=== PATIENT | female | born 1975 | race Caucasian/White ===

== ENCOUNTER → 2016-04-12 | Outpatient (CLI) | payer BC ==
--- NOTE | 2016-04-12 22:13 | CONS ---
DATE OF CONSULTATION: REASON FOR CONSULTATION: Obstructive sleep apnea. This is a 41-year-old obese female patient who is presenting with loud snoring, witnessed apneas, and chronically being fatigued and sleepy. She is concerned about sleep apnea. She goes to bed around 11 p.m., wakes up at 5 a.m. in the morning. She sleeps until 7 a.m. in the morning on weekends. She is a schoolteacher. She drives 20 minutes back and forth to work in [place]. At times she feels very tired, especially when she is driving back from work. She has never been involved in a motor vehicle accident because of feeling sleepy. Unfortunately her weight is up, and she has been having worsening in her daytime sleepiness over the past year or so. Charlton score is 18 for now. No restlessness in the lower extremities. No sleepwalking or sleeptalking. No anxiety or depression. PAST MEDICAL HISTORY: Obesity, hypertension. PAST SURGICAL HISTORY: None. ALLERGIES: SEASONAL ALLERGIES. OUTPATIENT MEDICATIONS: 1. Depo-Provera shot every 12 weeks. 2. Karrie D. 3. Fluticasone nasal spray. SOCIAL HISTORY: The patient is a nonsmoker. No history of alcoholism. No history of IV drugs. FAMILY HISTORY: Noncontributory. REVIEW OF SYSTEMS: Twelve-point review of systems was done, and the positive findings were all mentioned above in the history of present illness. BP is 168/91, pulse 84, respiration 16, temperature 97.9, saturation 99% on room air. Weight is 264. Height is 5 feet 3 inches. BMI is 46.5. Neck size 16-1/4. GENERAL APPEARANCE: Calm, comfortable. HEENT: Negative for JVD. There is no goiter or neck masses. The patient has significant crowding of posterior pharynx and Mallampati class IV. LUNGS: Clear to auscultation. HEART: Sounds are regular rate and rhythm. Normal S1, S2. No S3. No S4. No murmurs. ABDOMEN: Soft, nontender. No organomegaly. EXTREMITIES: No edema. No cyanosis or clubbing. IMPRESSION: 1. Suspected obstructive sleep apnea based on snoring and chronic hypersomnia. Currently the patient is under investigation. 2. Chronic hypersomnia with an Charlton score of 18. 3. Obesity with a body mass index of 46.5. 4. Seasonal allergic rhinitis. PLAN: 1. Proceed with screening polysomnogram. 2. Encourage weight loss. 3. Optimize sleep hygiene measures. 4. Will continue to follow.
== END | disposition home or self-care (01) ==
LOC: SLEEP 13:03
PROVIDERS: ATTEND Internal Medicine Critical Care Medicine
DX: G47.33 Obstructive sleep apnea (adult) (pediatric) (principal); G47.13 Recurrent hypersomnia; E66.9 Obesity, unspecified; Z68.42 Body mass index [BMI] 45.0-49.9, adult; J30.2 Other seasonal allergic rhinitis; Z79.899 Other long term (current) drug therapy

== ENCOUNTER → 2016-10-11 | Outpatient (CLI) | payer BC ==
--- NOTE | 2016-10-12 12:15 | PN ---
DATE OF SERVICE: 10/11/2016 This is a very pleasant 41 -year-old female patient who follows with Dr. Abdi ( ) as per primary care physician. She was referred here for suspected sleep apnea. She did undergo sleep study and was fund to have an AHI of 100 with severe symptomatic obstructive sleep apnea. She had undergone a successful CPAP titration and has been maintained on CPAP at a pressure of 14 cm water with CFLEX of 3. She has a small sized simple full face mask. She is here for follow-up. She states she has been doing very well with the CPAP. She has actually utilized it 30 out of 30 days and her AHI is now down to 0.6. She utilizes it 6.7 hours on average. There are no leaks noted. She is feeling significantly better. She denies any further daytime sleepiness. Her [place] score of 18 originally is down to 4. On physical exam, her weight is 258 pounds. Blood pressure 136/92. Heart rate 80. Respirations 16. Temperature 98.0. She is 98% O2 saturation on room air. Her head is normocephalic. Sclerae anicteric. She does have crowding of the posterior pharynx. Her neck is short, supple. Trachea is midline. Her lungs are clear anteriorly and posteriorly. Her heart is regular , S1, and S2. Her abdomen is obese, soft, nontender. Bowel sounds are present. There is no significant peripheral edema. No clubbing, no cyanosis. Peripheral pulses are intact. CPAP utilization findings reveal 30 out of 30 days averaging 6.7 hours with 0 L per minute leak. Her AHI is down to 0.6. IMPRESSION: 1. Severe symptomatic obstructive sleep apnea with an initial AHI of 100, currently utilizing CPAP at 14 cm water with a follow-up AHI of 0.6. 2. Severe nocturnal oxygen desaturation recovered with CPAP therapy. 3. REM rebound associated with CPAP therapy. 4. Chronic hypersomnia with an initial [place] score of 18, now down to 4. 5. Obesity with a body index of 46.5. 6. Allergic rhinitis. PLAN: The patient was seen and evaluated by Dr. Munson. She is quite happy with the results of her CPAP. She is comfortable with the current settings and pressures. We will continue with the CPAP and small size Simplus full face mask for now. She will follow-up in one years time. She is, however, encouraged to call sooner with any further questions or concerns. She is again educated regarding the importance of good sleep hygiene and weight loss. COOPER
== END ==
LOC: SLEEP 14:42
PROVIDERS: ATTEND Internal Medicine Critical Care Medicine
DX: G47.33 Obstructive sleep apnea (adult) (pediatric) (principal); G47.10 Hypersomnia, unspecified; E66.9 Obesity, unspecified; J30.9 Allergic rhinitis, unspecified; Z68.42 Body mass index [BMI] 45.0-49.9, adult

== ENCOUNTER → 2017-11-14 | Outpatient (CLI) | payer BC ==
--- NOTE | 2017-11-14 19:29 | SFUN ---
SLEEP CENTER FOLLOW UP NOTE DATE OF SERVICE: 11/14/2017. HISTORY: A 42-year-old female patient with sleep apnea, coming in for regular annual check. She has lost approximately 3 pounds since her last evaluation. She has severe obstructive sleep apnea with an AHI of 100. She is on CPAP pressure of 14. She continues to be compliant and she continues to benefit from treatment. She is using a Simplus full- face mask, and she has absolutely no leaks around the mask and she has an excellent mask seal. Averaging around 7.6 hours of CPAP use per night. CPAP use for more than 4 hours 100%. AHI while on treatment is down to 0.3. No complaints. She is waking up alert and refreshed during the day. No palpitations, no heartburn, no shortness of breath at nighttime. REVIEW OF SYSTEMS: A 12-point review of system was done. Positive findings are mentioned above in history of present illness. PHYSICAL EXAMINATION: BP is 144/88, pulse is 70, respirations 16, temp 97.5, saturation 99% on room air. Mccall score is 2. Height is 5 feet 3 inches, weight is 235. GENERAL APPEARANCE: Calm comfortable. Head is atraumatic, normocephalic. NECK: Supple. Mallampati class IV. There is no goiter, no neck masses. LUNGS: Clear to auscultation. HEART: Sounds are regular. Normal S1, S2. No murmurs. ABDOMEN: Soft, nontender. No organomegaly. EXTREMITIES: No edema. No cyanosis or clubbing. NEUROLOGIC: Alert and oriented x3. There is no focal neurological deficits. PSYCHIATRIC: Negative for anxiety or depression. IMPRESSION: 1. Severe symptomatic obstructive sleep apnea. Apnea hypopnea index of 100. Successful use of CPAP at pressure of 14. 2. Obesity with interval weight loss. Current weight is down to 235. 3. Hypersomnia, recovered. Current Mccall score is around 2. 4. Allergic rhinitis. PLAN: 1. No need for CPAP adjustment. Keep to a pressure of 14. 2. Encourage further weight loss. 3. Renew supplies. 4. See me back in a year's time, earlier if needed. MMODL / IJN: [id number] /
== END ==
LOC: SLEEP 16:50
PROVIDERS: ATTEND Internal Medicine Critical Care Medicine
DX: G47.33 Obstructive sleep apnea (adult) (pediatric) (principal); E66.9 Obesity, unspecified; R63.4 Abnormal weight loss; J30.9 Allergic rhinitis, unspecified

== ENCOUNTER → 2019-04-05 | Outpatient (CLI) | payer BC ==
--- NOTE | 2019-04-08 09:43 | MM ---
Reason for exam: screening (asymptomatic). Baseline mammogram. History: Patient had first child at age 31. Family history of breast cancer in mother at age 60. Physical Findings: A clinical breast exam by your physician is recommended on an annual basis and results should be correlated with mammographic findings. MG 3D Screening Mammo W/Cad Bilateral CC and MLO view(s) were taken. No prior studies available for comparison. The breast tissue is heterogeneously dense. This may lower the sensitivity of mammography. There is no discrete abnormality. ASSESSMENT: Negative, BI-RAD 1 RECOMMENDATION: Routine screening mammogram of both breasts in 1 year.
== END | disposition home or self-care (01) ==
LOC: RADMAMWWP 13:14
PROVIDERS: ATTEND Family Medicine
DX: Z12.31 Encounter for screening mammogram for malignant neoplasm of breast (principal); Z12.39 Encounter for other screening for malignant neoplasm of breast
CPT/HCPCS: 77063; 77067

== ENCOUNTER → 2019-08-20 | Outpatient (CLI) | payer BC ==
--- NOTE | 2019-08-20 18:06 | PN ---
PROGRESS NOTE This patient has severe ELIAS with an AHI of 100, coming in for a followup regarding her sleep apnea treatment. She continues to be excessively successful with her treatment, and she is currently on CPAP pressure of 12. On her compliance data, she is averaging around 7.3 hours with a CPAP use of more than 4 hours being 100%. She is leaking 6 L/minute and her AHI is down to 0.4. Her [place] score is 1. She has gained around 20 pounds. However, this has not affected her compliancy and clinical response. She is still doing well. No new complaints otherwise for now. No new-onset comorbidities. 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 REVIEW OF SYSTEMS: Fourteen-point review of system was done. Finding are positive only for some 20 pounds of weight gain. Otherwise no other significant comorbidities or new-onset symptoms for now. She is driving her car. She is not having any tiredness or sleepiness during the day. She was started on a blood pressure medication for blood pressure control. PHYSICAL EXAMINATION: VITAL SIGNS: BP is 110/71, pulse 76, respirations 16, temperature 98.0, saturation 98% on room air. Weight is 256, height is 5 feet 3 inches. GENERAL APPEARANCE: Calm, comfortable. HEAD: Atraumatic, normocephalic. NECK: Supple. No JVD. No goiter or neck masses. LUNGS: Clear to auscultation. HEART: Heart sounds are regular rate and rhythm. Normal S1, S2. No S3, S4. No murmurs. ABDOMEN: Soft, nontender. No organomegaly. EXTREMITIES: No edema. No cyanosis or clubbing. IMPRESSION: 1. Severe obstructive sleep apnea with an AHI of 100, currently on CPAP pressure of 12 with excellent clinical response and compliance. 2. Hypersomnia, recovered. 3. Snoring, recovered. 4. Hypertension. 5. Morbid obesity. PLAN: 1. Weight loss. 2. Continue same mask interface. 3. Continue same pressure setting. 4. Treatment is extremely successful. See me back in a few years' time in followup. Her DME is [employer]. She has no complaints. MMODL / IJN: [id number] /
== END | disposition home or self-care (01) ==
LOC: SLEEP 15:42
PROVIDERS: ATTEND Internal Medicine Critical Care Medicine
DX: G47.33 Obstructive sleep apnea (adult) (pediatric) (principal); E66.01 Morbid (severe) obesity due to excess calories; I10 Essential (primary) hypertension; Z68.42 Body mass index [BMI] 45.0-49.9, adult; Z99.89 Dependence on other enabling machines and devices

== ENCOUNTER → 2020-12-22 | Outpatient (CLI) | payer BC ==
--- NOTE | 2020-12-22 17:24 | PN ---
PROGRESS NOTE Montserrat is coming for an annual check. She is known to have obstructive sleep apnea, severe, with an AHI of 100. The patient remains on a CPAP pressure of 12 cm of water. She has remained very compliant with her CPAP therapy and her weight has remained stable. She continues to benefit. She is wearing her CPAP machine every night without any interruption. She is using a Simplus full-face mask. She is waking up refreshed and alert during the day and her sleep quality is very good. No issues with her CPAP unit. She is averaging around 7.6 hours of CPAP use per night and her usage of more than 4 hours is above 90%. Leak is zero liters per minute, and the patient's AHI is down to 1.1, indicating successful treatment. No nocturnal chest pain, shortness of breath, heartburn or any other comorbid conditions. REVIEW OF SYSTEMS: Fourteen-point review of systems was done. Positive findings are all mentioned above in the history of present illness. The patient's [place] score is only 2. No major hypersomnia or sleepiness. She is well treated. PHYSICAL EXAMINATION: VITAL SIGNS: BP is 125/80, pulse 74, respirations 16, temperature 97.3. [place] score is 2. Height is 5 feet 3 inches, weight 258, BMI 45.7. Saturation 99% on room air. GENERAL APPEARANCE: Calm, comfortable. HEAD: Atraumatic, normocephalic. Neck is supple. No JVD. No goiter or neck masses. LUNGS: Clear to auscultation. Heart sounds are regular rate and rhythm. Normal S1, S2. No S3, S4. No murmurs. ABDOMEN: Soft, nontender. No organomegaly. EXTREMITIES: No edema. No cyanosis or clubbing. NEUROLOGIC: Awake, alert. There is no focal neurological deficit. IMPRESSION: 1. Symptomatic obstructive sleep apnea. AHI of 100. Adequately treated with a CPAP pressure of 12. 2. Hypersomnia, recovered. [place] score is down to 2. 3. Obesity. Stable weight with a BMI of 45.7. PLAN: 1. Keep the same pressure setting. 2. Keep the same mask interface: Simplus, small size. 3. No need for adjustment in the pressure setting. Treatment is successful. No major hypersomnia or sleepiness. See me back in 1 to 2 years in followup. MMODL / IJN: [id number] /
== END ==
LOC: SLEEP 16:01
PROVIDERS: ATTEND Internal Medicine Critical Care Medicine
DX: G47.33 Obstructive sleep apnea (adult) (pediatric) (principal); E66.9 Obesity, unspecified; Z99.89 Dependence on other enabling machines and devices; Z68.42 Body mass index [BMI] 45.0-49.9, adult

== ENCOUNTER → 2021-04-12 | Outpatient (CLI) | payer BC ==
--- NOTE | 2021-04-12 09:43 | US ---
EXAMINATION TYPE: US liver DATE OF EXAM: 04/12/2021 COMPARISON: NONE CLINICAL HISTORY: R94.5 ABN LIVER FUNCTION TEST. EXAM MEASUREMENTS: Liver Length: 23.4 cm Gallbladder Wall: 0.1 cm CBD: 0.3 cm Right Kidney: 11.8 x 5.2 x 4.9 cm Pancreas: Tail obscured by overlying bowel gas Liver: enlarged, echogenic with focal sparing near GB Gallbladder: No stones seen Evidence for sonographic López's sign: No CBD: wnl Right Kidney: No hydronephrosis or masses seen IMPRESSION: 1. Hepatomegaly
--- NOTE | 2021-04-14 12:21 | MM ---
Reason for exam: screening (asymptomatic). Last mammogram was performed 2 years ago. History: Patient had first child at age 31. Family history of breast cancer in mother at age 60. Physical Findings: A clinical breast exam by your physician is recommended on an annual basis and results should be correlated with mammographic findings. MG 3D Screening Mammo W/Cad Bilateral CC and MLO view(s) were taken. Prior study comparison: April 05, 2019, bilateral MG 3d screening mammo w/cad. There are scattered fibroglandular densities. No significant changes when compared with prior studies. ASSESSMENT: Benign, BI-RAD 2 RECOMMENDATION: Routine screening mammogram of both breasts in 1 year.
== END | disposition home or self-care (01) ==
LOC: RADMAMWWP 07:47
PROVIDERS: ATTEND Family Medicine
DX: Z12.31 Encounter for screening mammogram for malignant neoplasm of breast (principal); R16.0 Hepatomegaly, not elsewhere classified; Z80.3 Family history of malignant neoplasm of breast
CPT/HCPCS: 76705; 77063; 77067

== ENCOUNTER → 2022-01-04 | Outpatient (CLI) | payer BC ==
--- NOTE | 2022-01-04 16:20 | P.PN ---
Progress Note - Text Progress Note Date: 01/04/22 This is a very pleasant 46-year-old morbidly obese female patient with known history of severe obstructive sleep apnea with an AHI of 100 coming in for an annual check regarding his ELIAS. She remains very compliant to CPAP therapy at a pressure of 12 cm of water. She is fully functional. She does not fall asleep during day-to-day activities. She is trying to lose weight. Her current [place] score is down to 3 and her weight is down to 249 pounds. She has hypertension and hyperlipidemia both treated. In terms of her ELIAS treatment, the patient continues to use the Simplus fullface mask. Her current setting is at 12 cm of water. She's been averaging about 6.8 hours of CPAP use per night. She is using the machine more than 4 hours 100% of the time and the use of the machine is 30 over 30. This is based on a 30 day compliancy check. Leak is in the order of 5 L/m and AHI is down to 1.1 while on treatment. No headache. No hypersomnia. No sleepiness P no chest tightness. No wheezing. No sleepwalking. No sleep talking. No restlessness and lower extremities. She denies falling sleep while driving. Her sleep quality is good and she is averaging a good 6-7 hours of sleep every night. BP is 117/79 with a pulse of 71 and a respiration of 16 with a temperature of 97.2 and oxygenation of 99%. Fourmile score is at 3. Weight is at 249 pounds. Gen. appearance morbidly obese, comfortable no acute distress Head exam was generally normal. There was no scleral icterus or corneal arcus. Mucous membranes were moist. Neck was supple and without jugular venous distension, thyromegaly, or carotid bruits. Carotids were easily palpable bilaterally. There was no adenopathy. Mallampati class IV Lungs were clear to auscultation and percussion, and with normal diaphragmatic excursion. No wheezes or rales were noted. Cardiac exam revealed the PMI to be normally situated and sized. The rhythm was regular and no extrasystoles were noted during several minutes of auscultation. The first and second heart sounds were normal and physiologic splitting of the second heart sound was noted. There were no murmurs, rubs, clicks, or gallops. Abdominal exam revealed normal bowel sounds. The abdomen was soft, non-tender, and without masses, organomegaly, or appreciable enlargement of the abdominal aorta. Examination of the extremities revealed easily palpable radial, femoral and pedal pulses. There was no cyanosis, clubbing or edema. Examination of the skin revealed no evidence of significant rashes, suspicious appearing nevi or other concerning lesions. Neurologically, the patient is awake and alert and the patient does not have any focal neurological deficit. Cranial nerves are essentially intact. Assessment Severe ELIAS with an AHI of 100, successfully treated Chronic hypersomnia, well treated and the patient's Four[place] score is down to 3 Hypertension Hyperlipidemia Morbid obesity with a weight of 249 pounds, lost approximately 9 pounds since her last evaluation Plan Refill all supplies Keep same pressure setting Machine is functional Refill the Simplus fullface mask, medium size Encourage weight loss See back in one year
== END ==
LOC: SLEEP 16:02
PROVIDERS: ATTEND Internal Medicine Critical Care Medicine
DX: Z53.9 Procedure and treatment not carried out, unspecified reason (principal)

== ENCOUNTER → 2024-05-24 | Outpatient (CLI) | payer BC ==
--- NOTE | 2024-05-24 11:50 | CT ---
EXAMINATION TYPE: CT heart w calcium score DATE OF EXAM: 05/24/2024 COMPARISON: CLINICAL INDICATION: Female, 49 years old with history of z82.49 family hx heart disease; PHH, hx of htn, pt physician recommended exam TECHNIQUE: Prospective Gating was used. Slice thickness: 3mm. Density threshold (HU): 130, Pixel threshold: 3, Algorithm: discrete. CT DLP: 201.[address] CTDI: mGy Automated exposure control for dose reduction was used. FINDINGS: CT CALCIUM SCORING Coronary calcium is a marker for plaque (fatty deposits) in a blood vessel or atherosclerosis (harden ing of the arteries). The presence and amount of calcium detected in a coronary artery by the CT sca n, indicates the presence and amount of atherosclerotic plaque. These calcium deposits appear years before the development of heart disease symptoms such as chest pain and shortness of breath. A calcium score is computed for each of the coronary arteries based upon the volume and density of th e calcium deposits. This can be referred to as your calcified plaque burden. It does not correspond directly to the percentage of narrowing in the artery but does correlate with the severity of the un derlying coronary atherosclerosis. RESULTS Region: LM Calcium Score ([place]): 0 Volume (mm3): 0 Mass (g): 0 Region: RCA Calcium Score ([place]): 0 Volume (mm3): 0 Mass (g): 0 Region: LAD Calcium Score ([place]): 1.88 Volume (mm3): 5.63 Mass (g): 1.88 Region: CX Calcium Score ([place]): 17.76 Volume (mm3): 26.86 Mass (g): 8.95 Region: PDA Calcium Score ([place]): 0 Volume (mm3): 0 Mass (g): 0 Total: Calcium Score ([place]): 19.64 Volume (mm3): 32.49 Mass (g): 10.83 Incidental finding: None. IMPRESSION: Calcium Score: 11-100 Implication: Definite, at least mild atherosclerotic plaque Risk of Coronary Artery Disease: Mild or minimal coronary narrowings likely. CALCIUM SCORE IMPLICATION RISK OF C ORONARY ARTERY DISEASE 0 No identifiable plaque Very low, generally less than 5% 1-10 Minimal identifiable plaque Very unlikely, less than 10% 11-100 Definite, at least mild atherosclerotic plaque Mild or m inimal coronary narrowings likely 101-400 Definite, at least moderate atherosclerotic plaque Mild coronary ar aditya disease highly likely, significant narrowing possible 401 or Higher Extensive atherosclerotic plaque High lik elihood of at least one significant coronary narrowing [facility], , 05/24/2024 11:48 AM
--- NOTE | 2024-05-24 12:48 | CA ---
Transthoracic Echo Report Name: Montserrat Enrique Age: 49 Gender: F : 1975 Exam Date: 05/24/2024 11:12 Exam Location: [facility] Ht (in): 63 Wt (lb): 250 Ordering Physician: Titus Allred MD Attending/Referring Phys: Hannah Hein [facility] [employer] Lorenza Tse RDCS Procedure CPT: Indications: I10 Essential Hypertension Cardiac Hx: Technical Quality: Fair Contrast 1: Total Dose (mL): Contrast 2: Total Dose (mL): MEASUREMENTS (Male / Female) Normal Values 2D ECHO LV Diastolic Diameter PLAX 5.2 cm 4.2 - 5.9 / 3.9 - 5.3 cm LV Systolic Diameter PLAX 4.0 cm IVS Diastolic Thickness 1.1 cm 0.6 - 1.0 / 0.6 - 0.9 cm LVPW Diastolic Thickness 1.1 cm 0.6 - 1.0 / 0.6 - 0.9 cm LV Relative Wall Thickness 0.4 LVOT Diameter 2.0 cm LV Diastolic Volume MOD BP 117.0 cm??? 67 - 155 / 56 - 104 cm??? LV Systolic Volume MOD BP 53.0 cm??? 22 - 58 / 19 - 49 cm??? LV Ejection Fraction MOD BP 54.7 % >= 55 % LV Cardiac Index MOD BP 1800.7 cm???/min???m??? LV Diastolic Volume MOD 4C 124.1 cm??? LV Systolic Volume MOD 4C 54.7 cm??? LV Ejection Fraction MOD 4C 55.9 % LV Cardiac Index MOD 4C 1954.0 cm???/min???m??? LV Diastolic Length 4C 7.7 cm LV Systolic Length 4C 5.9 cm LV Diastolic Volume MOD 2C 109.4 cm??? LV Systolic Volume MOD 2C 50.3 cm??? LV Ejection Fraction MOD 2C 54.0 % LV Cardiac Index MOD 2C 1662.7 cm???/min???m??? LV Diastolic Length 2C 7.6 cm LV Systolic Length 2C 6.1 cm LA Volume 45.8 cm??? 18 - 58 / 22 - 52 cm??? LA Volume Index 19.8 cm???/m??? 16 - 28 cm???/m??? Ascending Aorta Diameter 3.1 cm DOPPLER AV Peak Velocity 137.9 cm/s AV Peak Gradient 7.6 mmHg AV Mean Velocity 99.0 cm/s AV Mean Gradient 4.3 mmHg AV Velocity Time Integral 30.5 cm LVOT Peak Velocity 98.1 cm/s LVOT Peak Gradient 3.9 mmHg LVOT Velocity Time Integral 23.2 cm LVOT Stroke Volume 71.0 cm??? LVOT Stroke Volume Index 33.4 ml/m??? LVOT Cardiac Index 1997.9 cm???/min???m??? AV Area Cont Eq vti 2.3 cm??? AV Area Cont Eq pk 2.2 cm??? MV Area PHT 4.3 cm??? Mitral E Point Velocity 84.8 cm/s Mitral A Point Velocity 53.9 cm/s Mitral E to A Ratio 1.6 MV Deceleration Time 176.7 ms TR Peak Velocity 258.7 cm/s TR Peak Gradient 26.8 mmHg Right Atrial Pressure 5.0 mmHg Pulmonary Artery Systolic Pressu 31.8 mmHg Right Ventricular Systolic Press 31.8 mmHg PV Peak Velocity 126.7 cm/s PV Peak Gradient 6.4 mmHg FINDINGS Left Ventricle Left ventricular ejection fraction is estimated at 55 %. Mildly increased septal wall thickness. Mildly increased posterior wall thickness. Mildly increased left ventricular diastolic volume. Mildly increased left ventricular systolic volume. No obvious regional wall motion abnormalities. Right Ventricle Right ventricular dilatation. Normal right ventricular global systolic function. Right ventricular systolic pressure within normal limits. Right Atrium Normal right atrial size. Left Atrium Normal left atrial size. Mitral Valve Structurally normal mitral valve. No evidence for mitral valve prolapse. No mitral stenosis. Trace mitral regurgitation. Aortic Valve Trileaflet aortic valve. No aortic valve stenosis or regurgitation. Tricuspid Valve Structurally normal tricuspid valve. No tricuspid stenosis. Mild tricuspid regurgitation. Pulmonic Valve Structurally normal pulmonic valve. No pulmonic stenosis. Trace pulmonic regurgitation. Pericardium No pericardial effusion. Aorta Normal size aortic root and proximal ascending aorta. CONCLUSIONS Indication: Hypertensive heart disease, hypertension LVH with preserved systolic function Thickened pericardium Previewed by: Dr. Brent Brooks MD (Electronically Signed) Final Date: 24 May 2024 12:47
== END | disposition home or self-care (01) ==
LOC: RADCTMAIN 10:25
PROVIDERS: ATTEND Family Medicine
DX: I25.10 Atherosclerotic heart disease of native coronary artery without angina pectoris (principal); I11.9 Hypertensive heart disease without heart failure; Z82.49 Family history of ischemic heart disease and other diseases of the circulatory system
CPT/HCPCS: 75571; 93306